=== PATIENT | female | born 1990 | race Hispanic/Latino ===

== ENCOUNTER 2021-01-05 | Emergency (ER) | payer MEDICAID ==
[2021-01-05] MEDS ORDERED: BL IBUPROFEN200 MG PO (20:30)
[2021-01-05] MEDS ORDERED: HYDROCO/APAP1 TA9 PO (20:42)
[2021-01-05] MEDS ORDERED: CLINDAMYCIN300 M1 PO (20:42)
== END 2021-01-05 20:54 | disposition home or self-care (01) ==
DX: K04.7 Periapical abscess without sinus (principal); K02.9 Dental caries, unspecified

== ENCOUNTER 2021-04-16 12:03 | Emergency (ER) | payer MEDICAID ==
[~2021-04-16] VITALS: Ht 152.4 cm; Wt 52.0 kg
[~2021-04-16 12:03] MED LIST: BL IBUPROFEN200 MG PO; CLINDAMYCIN300 M1 PO; HYDROCO/APAP1 TA9 PO
[2021-04-16] MEDS ORDERED: PNV PO (12:38)
[2021-04-16] MEDS ORDERED: ZOFRAN4 M1 PO (12:39)
[2021-04-16 14:02] VITALS: BP 112/70
[2021-04-16] MEDS ORDERED: AMOXICILLIN500 M2 PO (14:18)
== END 2021-04-16 14:02 | disposition home or self-care (01) ==
LOC: ED 12:03
DX: O99.511 Diseases of the respiratory system complicating pregnancy, first trimester (principal); J02.9 Acute pharyngitis, unspecified; Z3A.10 10 weeks gestation of pregnancy; Z20.822 Contact with and (suspected) exposure to COVID-19